=== PATIENT | male | born 1965 | race Caucasian/White ===

== ENCOUNTER 2020-07-09 09:07 | Emergency (ER) | payer SELFPAY ==
[~2020-07-09] VITALS: Ht 162.6 cm; Wt 73.0 kg
[2020-07-09 09:10] VITALS: BP 124/58
[2020-07-09] MEDS ORDERED: DIPH,PERTUSS(ACELL),TET VAC/PF 0.5 ML SYRINGE. VAX IM ONE (09:45)
--- NOTE | 2020-07-09 10:05 | RAD ---
XR FOOT_LEFT 3 VIEWS History: Reason: pain plantar aspect prox to toe s/p thorn puncture injury / Spl. Instructions: / H istory: Technique: 3 views left foot. Comparison: None. Findings: Pes cavus. Plantar calcaneal spur. Hallux valgus. Mild first MTP DJD. No radiopaque foreign body. No fracture. Impression: 1. No acute osseous abnormality. No radiopaque foreign body. Electronically signed by: Carson Ramirez DO (07/09/2020 10:03 AM) [id number]
[2020-07-09] MEDS ORDERED: SULF1TAB24 PO (10:19)
[2020-07-09] MEDS ORDERED: CEPH500C PO (10:19)
--- NOTE | 2020-07-09 10:20 | PHYS DOC ---
Past History Past Medical History: No Pertinent History Past Surgical History: Other Additional Past Surgical Histo: left leg Alcohol Use: Rarely General Adult EDM: Chief Complaint: FOOT INJURY PAIN HPI: HPI: 55-year-old male Review of Systems: Review of Systems: Constitutional: Denies fever or chills Eyes: Denies change in visual acuity HENT: Denies nasal congestion or sore throat Respiratory: Denies cough or shortness of breath Cardiovascular: Denies chest pain or edema GI: Denies abdominal pain, nausea, vomiting, bloody stools or diarrhea : Denies dysuria Musculoskeletal: Denies back pain or joint pain Integument: Denies rash Neurologic: Denies headache, focal weakness or sensory changes Endocrine: Denies polyuria or polydipsia Lymphatic: Denies swollen glands Psychiatric: Denies depression or anxiety Current Medications: Current Meds: Current Medications Medications (Trade) Dose Ordered Sig/Neymar Start Time Stop Time Status Last Admin Dose Admin Diphtheria/ Pertussis/Tetanus Vacc (ADACEL TDap SYRINGE) 0.5 ml ONCE ONCE 07/09/20 09:45 07/09/20 09:55 DC Allergies: Allergies: Allergies Coded Allergies Type Severity Reaction Last Updated Verified No Known Drug Allergies 07/09/20 No Physical Exam: PE: Constitutional: Well developed, well nourished, no acute distress, non-toxic appearance. HENT: Normocephalic, atraumatic, Eyes: EOMI, conjunctiva normal, no discharge. Neck: Normal range of motion, supple, Cardiovascular: S1/2 present, regular rhythm Lungs & Thorax: Speaking in full sentences, bilateral equal chest rise, no tachypnea or increased work of breathing Abdomen: soft, no tenderness, Skin: Warm, dry, no erythema, no rash. [] Back: No tenderness, no CVA tenderness. [] Extremities: No tenderness, no cyanosis, no lower extremity edema Neurologic: Alert and oriented X 3, normal motor function, normal sensory function, no focal deficits noted. [] Psychologic: Affect normal, judgement normal, mood normal. [] Current Patient Data: Vital Signs: Vital Signs Date Time Temp Pulse Resp B/P (MAP) Pulse Ox O2 Delivery O2 Flow Rate FiO2 07/09/20 09:10 97.5 59 16 124/58 (80) 98 Room Air EKG: EKG: [] Radiology/Procedures: Radiology/Procedures: []IMAGING REPORT Signed PATIENT: LESVIA RAMACCOUNT: [id number] : 1965 LOCATION: ER AGE: 55 SEX: M EXAM STATUS: REG ER ORD. PHYSICIAN: MIKI SCHULZ DO REASON: pain plantar aspect prox to toe s/p thorn puncture injury PROCEDURE: FOOT LEFT 3V XR FOOT_LEFT 3 VIEWS History: Reason: pain plantar aspect prox to toe s/p thorn puncture injury / Spl. Instructions: / History: Technique: 3 views left foot. Comparison: None. Findings: Pes cavus. Plantar calcaneal spur. Hallux valgus. Mild first MTP DJD. No radiopaque foreign body. No fracture. Impression: 1. No acute osseous abnormality. No radiopaque foreign body. Electronically signed by: Carson Le DO (07/09/2020 10:03 AM) [id number] DICTATED AND SIGNED BY: CARSON LE DO DATE: 07/09/20 1000 CC: PCP,NO; MIKI SCHULZ DO ~MTH0 0 Heart Score: C/O Chest Pain: No Risk Factors: Risk Factors: DM, Current or recent (<one month) smoker, HTN, HLP, family history of CAD, obesity. Risk Scores: Score 0 - 3: 2.5% MACE over next 6 weeks - Discharge Home Score 4 - 6: 20.3% MACE over next 6 weeks - Admit for Clinical Observation Score 7 - 10: 72.7% MACE over next 6 weeks - Early Invasive Strategies Course & Med Decision Making: Course & Med Decision Making Pertinent Labs and Imaging studies reviewed. (See chart for details) Will discharge home with strict ED return precautions were given for worsening r rosalio, severe pain, neurologic deficits, fever or joint pain. Encouraged urgent outpatient follow-up with PMD within 1 week for wound check. Life-threatening processes were considered but are low suspicion at this time, given history, physical exam and ED workup. Pt was educated on all prescription medications and adverse effects. All patient's questions were answered and pt was stable at time of discharge. Life/limb-threatening differential includes but is not limited to, trauma (fracture, dislocation, laceration, compartment syndrome, tendon or ligament injury), neurovascular injury or deficitcva/tia, infection (osteomyelitis, ab scess, cellulitis, septic arthritis, necrotizing fasciitis), deep vein thrombosis, renal/cardiac/liver disease, medication adverse effect, lymphedema/anasarca, vascular insufficiency or malignancy, I spoken with the patient and her caregivers. I explained the patient's condition, diagnoses and treatment plan based on the information available to me at this time. I have answered the patient and her caregiver's questions and addressed any concerns. The patient and her caregivers have a good understanding of patient's diagnosis, condition and treatment plan as can be expected at this point. Vital signs have been stable. Patient's condition is stable and appropriate for discharge from the emergency department. Patient will pursue further outpatient evaluation with primary care physician or other designated or consulting physician as outlined in the discharge instructions. The patient and/or caregivers are agreeable to this plan of care and follow-up instructions have been explained in detail. The patient and/or caregivers have received these instructions in written form and have expressed an understanding of the discharge instructions. The patient and/or caregivers are aware that any significant change of condition or worsening of symptoms should prompt immediate return to this or the closest emergency department or call to [facility] [place] Disclaimer: [place] Disclaimer: This electronic medical record was generated, in whole or in part, using a voice recognition dictation system. Departure Departure: Impression: Primary Impression: Degenerative joint disease of toe Additional Impressions: Puncture wound of foot Cellulitis of left foot Need for Tdap vaccination Disposition: 01 DC HOME SELF CARE/HOMELESS Condition: STABLE Referrals: PCP,NO (PCP) for wound check within 7 days FOLLOW UP WITH FAMILY MEDICINE: [facility], [address] [address] [place] [facility] Patient Instructions: Cellulitis, VIS, Tetanus, Diphtheria (Td); Tetanus, Diphtheria, Pertussis (Tdap) - CDC Additional Instructions: EMERGENCY DEPARTMENT GENERAL DISCHARGE INSTRUCTIONS Thank you for coming to [facility] (ED) today and trusting us with you care. We trust that you had a positivie experience in our Emergency Department. If you wish to speak to the department management, you may call the director at [phone]. YOUR FOLLOW UP INSTRUCTIONS ARE FOLLOWS: 1. Do you have a private Doctor? If you do not have a private doctor, please ask for a resource list of physicians or clinics that may be able to assist you with follow up care. 2. The Emergency Physician has interpreted your x-rays. The X-Ray specialist will also review them. If there is a change in the findings, you will be notified in 48 hours when at all possible. 3. A lab test or culture has been done, your results will be reviewed and you will be notified if you need a change in treatment. ADDITIONAL INSTRUCTIONS AND INFORMATION: 1. Your care today has been supervised by a physician who is specially trained in emergency care. Many problems require more than one evaluation for a complete diagnosis and treatment. We recommend that you schedule your follow up appointment as recommended to ensure complete treatment of you illness or injury. If you are unable to obtain follow up care and continue to have a problem, or if your condition worsens, we recommend that you return to the ED. 2. We are not able to safely determine your condition over the phone nor are we able to give sound medical advice over the phone. For these safety reasons, if you call for medical advice we will ask you to come to the ED for further evaluation. 3. If you have any questions regarding these discharge instructions please call the ED at [phone]. SAFETY INFORMATION: In the interest of safety, wellness, and injury prevention; we encourage you to wear your sealbelt, if you smoke; quite smoking, and we encourage family to use a protective helmet for bicycling and other sporting events that present an increased risk for head injury. IF YOUR SYMPTOMS WORSEN OR NEW SYMPTOMS DEVELOP, OR YOU HAVE CONCERNS ABOUT YOUR CONDITION; OR IF YOUR CONDITION WORSENS WHILE YOU ARE WAITING FOR YOUR FOLLOW UP APPOINTMENT; EITHER CONTACT YOUR PRIMARY CARE DOCTOR, THE PHYSICIAN WHOSE NAME AND NUMBER YOU WERE GIVEN, OR RETURN TO THE ED IMMEDIATELY. Scripts Cephalexin (CEPHALEXIN) 500 Mg Capsule 1 CAP PO QID for cellulitis for 10 Days, #40 CAP Prov: MIKI SCHULZ DO 07/09/20 Sulfamethoxazole/Trimethoprim (BACTRIM DS TABLET) 1 Each Tablet 1 TAB PO BID for cellultis for 10 Days, #20 TAB 0 Refills Prov: MIKI SCHULZ DO 07/09/20 MIKI SCHULZ DO Jul 09, 2020 10:19
== END 2020-07-09 10:32 | disposition home or self-care (01) ==
LOC: ER 09:07
DX: S91.332A Puncture wound without foreign body, left foot, initial encounter (principal); L03.116 Cellulitis of left lower limb; M19.072 Primary osteoarthritis, left ankle and foot; Y28.8XXA Contact with other sharp object, undetermined intent, initial encounter; Y93.89 Activity, other specified; Y92.89 Other specified places as the place of occurrence of the external cause; Y99.8 Other external cause status
CPT/HCPCS: 73630; 90471; 90715; 99283-25

== ENCOUNTER → 2021-03-25 | Outpatient (CLI) | payer OTHER ==
[~2021-03-25] MED LIST: CEPH500C PO; SULF1TAB24 PO
--- NOTE | 2021-03-25 16:42 | RAD ---
XR LUMBAR SPINE 2-3V History: Reason: LOW BACK PAIN, INJURY YEARS AGO / Spl. Instructions: / History: Technique: 3 views lumbar spine. Comparison: June 04, 2013 Findings: Mild retrolisthesis L3 on L4 and L2 on L3, similar compared to prior. Chronic lower thoracic anterior vertebral body wedging, unchanged. Mild to moderate multilevel degenerative disc changes most promin ent L3-L4 and L4-L5. Facet arthropathy. Impression: 1. Mild to moderate multilevel lumbar spondylosis, progressed compared to 2014. Electronically signed by: Carson Ramirez DO (03/25/2021 4:39 PM) [id number]
--- NOTE | 2021-03-25 16:43 | RAD ---
XR CERVICAL SPINE 2-3V History: Reason: NECK PAIN RADIATING DOWN LEFT SIDE, INJURY YEARS AGO / Spl. Instructions: / History : Technique: 3 views cervical spine. Comparison: None. Findings: Mild retrolisthesis C3 on C4. Normal vertebral body height. No acute fracture. Multilevel degenerativ e disc changes most prominent C6-C7 moderate. Prevertebral soft tissues unremarkable. Facet arthropat hy. Normal alignment C1 on C2. Multifocal carious dentition with periodontal disease. Impression: 1. Multilevel cervical spondylosis most prominent C6-C7. 2. Multifocal carious dentition with periodontal disease. Electronically signed by: Carson Ramirez DO (03/25/2021 4:41 PM) [id number]
== END ==
LOC: RAD 07:30
PROVIDERS: ATTEND Nurse Practitioner Primary Care
DX: M47.816 Spondylosis without myelopathy or radiculopathy, lumbar region (principal); M48.8X6 Other specified spondylopathies, lumbar region; M47.812 Spondylosis without myelopathy or radiculopathy, cervical region; K05.5 Other periodontal diseases; K00.7 Teething syndrome; M48.8X2 Other specified spondylopathies, cervical region
CPT/HCPCS: 72040; 72100